=== PATIENT | male | born 2005 | race African-American/Black ===

== ENCOUNTER 2025-03-01 12:45 | Emergency (ER) | payer SELFPAY ==
[~2025-03-01] VITALS: Ht 180.3 cm; Wt 75.0 kg
[2025-03-01 12:57] VITALS: BP 135/58; PULSE 90; RESP 18; TEMP 98.4; O2SAT 96
== END 2025-03-01 13:37 | disposition left against medical advice (07) ==
LOC: EMS 13:33
DX: S43.004A Unspecified dislocation of right shoulder joint, initial encounter (principal); Z72.89 Other problems related to lifestyle; X58.XXXA Exposure to other specified factors, initial encounter; Y93.84 Activity, sleeping; Y92.89 Other specified places as the place of occurrence of the external cause; Y99.8 Other external cause status
CPT/HCPCS: 29105; 99283